=== PATIENT | female | born 1935 | race Caucasian/White ===

== ENCOUNTER 2017-07-03 12:41 | Inpatient (IN) | payer MEDICARE, OTHER ==
[2017-07-03] MEDS ORDERED: Magnesium 2 GM/NS 0.9% 50 ML 2 GM in Premix Bag 1 BAG IVPB ONE (14:15)
[2017-07-03 14:16] LABS: #Lymphocytes 0.3 thou/uL (1.20-3.40); #Monocytes 0.7 thou/uL (0.11-0.59); #Neutrophils 4.6 thou/uL (1.40-6.50); %Eosinophils 0.2 % (0.0-10.0); %Lymphocytes 5.2 % (21.0-51.0); %Monocytes 12.4 % (0.0-10.0); %Neutrophils 82.2 % (42.0-75.0); Hemoglobin 13.8 g/dL (12.0-16.0); Mean Corpuscular HGB CONC 33.2 g/dL (32.0-36.0); Mean Corpuscular Hemoglobin 32.4 pg (27.0-31.0); Mean Corpuscular Volume 97.7 fl (81.0-99.0); Mean Platelet Volume 6.5 fL (7.4-10.4); Platelet Count 291 thou/uL (130-400); RBC Distribution Width 11.2 % (11.5-14.5); Red Blood Cell (RBC) Count 4.26 mill/uL (4.20-5.40); White Blood Cell (WBC) Count 5.6 thou/uL (4.8-10.8)
--- NOTE | 2017-07-03 14:16 | RAD ---
PORTABLE CHEST ONE VIEW: 07/03/2017 1:38 p.m. HISTORY: Cough. FINDINGS: The heart size is enlarged. The aorta is tortuous. The lungs are well expanded without focal areas of consolidation, pneumothorax, francis pulmonary edema, or pleural effusions. POS: [facility]
[2017-07-03] MEDS ORDERED: Ondansetron HCl/PF 4 MG/2 ML Vial ONE (14:20)
[2017-07-03] MEDS ORDERED: methylPREDNISolone Sod Succ/PF 125 MG/2 ML VIAL ONE (14:21)
[2017-07-03] MEDS ORDERED: Water For Inject, Bacteriostat 30 ML ONE (14:21)
[2017-07-03 14:37] LABS: ALT (SGPT) 27 U/L (8-55); AST (SGOT) 38 U/L (5-34); Albumin 4.8 g/dL (3.4-4.8); Alkaline Phosphatase 73 U/L (40-150); Anion Gap 16 mmol/L (10-20); BUN (Urea Nitrogen) 11 mg/dL (9.8-20.1); Bilirubin, Total 0.4 mg/dL (0.2-1.2); CK (CPK) 269 U/L (29-168); Calc. Creatinine Clearance 0 mL/min (70-130); Calcium 10.4 mg/dL (7.8-10.44); Carbon Dioxide 25 mmol/L (23-31); Chloride 96 mmol/L (98-107); Estimated GFR-MDRD 73; Glucose 134 mg/dL (83-110); Lipase 7 U/L (8-78); Potassium 3.4 mmol/L (3.5-5.1); Protein, Total 7.8 g/dL (6.0-8.3); Sodium 134 mmol/L (136-145)
[2017-07-03 14:42] LABS: Troponin I 0.019 ng/mL (< 0.028)
[2017-07-03 14:45] LABS: CKMB 7.8 ng/mL (0-6.6)
[2017-07-03] MEDS ORDERED: Oseltamivir 75 MG CAP PO ONE (15:00)
[2017-07-03 15:04] LABS: Bilirubin Negative (Negative); Blood, Urine Moderate (Negative); Clarity CLOUDY (Clear); Glucose, Urine (Dipstick) Negative (Negative); Leukocyte Negative (Negative); Nitrite Negative (Negative); Protein, Urine (Dipstick) 100 mg/dL (Neg-Trace); Specific Gravity, Urine 1.018 (1.002-1.036); Urobilinogen 0.2 mg/dL (0.2-1.0)
[2017-07-03 15:06] LABS: Bacteria/HPF None Seen HPF (None Seen); Hyaline Casts/LPF 0-3 HYALINE CAST LPF (0-3 Hyaline); Pathc Cast-AUWi Flag 0.13 (0-2.49); Squamous Epithelial 0-3 HPF (0-3); WBC/HPF 0-3 HPF (0-3)
[2017-07-03 15:16] LABS: Crystals/HPF 1+ AMORPH PHOS HPF (Negative)
[2017-07-03] MEDS ORDERED: Albuterol Sulfate 2.5 mg/3 ml Neb NEB PRN (16:01)
[2017-07-03] MEDS ORDERED: Loperamide HCl 2 MG CAP PO PRN (16:25)
[2017-07-03] MEDS ORDERED: Acetaminophen 325 MG TAB PO PRN (16:25)
[2017-07-03] MEDS ORDERED: Pepto Bismol Chew TAB PO PRN (16:25)
[2017-07-03] MEDS ORDERED: Ondansetron ODT 4 MG TAB PO PRN (16:25)
[2017-07-03] MEDS ORDERED: Ondansetron HCl/PF 4 MG/2 ML Vial IVP PRN (16:25)
[2017-07-03] MEDS ORDERED: Sodium Chloride 0.9% 1,000 ML IV SCH (16:25)
[2017-07-03] MEDS ORDERED: HYDROcodone/Acetaminophen 5/325 mg Tablet PO PRN (16:25)
[2017-07-03 16:33] VITALS: BMI 18.2
[2017-07-03 18:14] LABS: Lactic Acid 1.5 mmol/L (0.5-2.2)
[2017-07-03] MEDS: Oseltamivir 75 MG CAP PO SCH (20:11)
[2017-07-03] MEDS: Famotidine/PF 20 mg/2ml Vial SLOW IVP SCH (20:11)
[2017-07-03] MEDS: Sodium Chloride 0.9% 1,000 ML IV SCH (20:11)
[2017-07-04] MEDS: Sodium Chloride 0.9% 1,000 ML IV SCH ×2 (04:52→08:30)
[2017-07-04 05:52] LABS: Band 14 % (5-11); Hemoglobin 11.7 g/dL (12.0-16.0); Lymphocytes 3 % (21-51); MDiff Complete? YES; Mean Corpuscular Volume 96.9 fl (81.0-99.0); Mean Platelet Volume 6.8 fL (7.4-10.4); Monocytes 23 % (0-10); Neutrophil 57 % (42-75); PLT Morphology Comment Appears Adequate; Platelet Count 235 thou/uL (130-400); RBC Distribution Width 11.1 % (11.5-14.5); Reactive Lymphocytes 3 % (0-10); Red Blood Cell (RBC) Count 3.55 mill/uL (4.20-5.40); White Blood Cell (WBC) Count 3.7 thou/uL (4.8-10.8)
[2017-07-04 06:14] LABS: Anion Gap 12 mmol/L (10-20); BUN (Urea Nitrogen) 15 mg/dL (9.8-20.1); Calc. Creatinine Clearance 45 mL/min (70-130); Calcium 8.7 mg/dL (7.8-10.44); Carbon Dioxide 25 mmol/L (23-31); Chloride 99 mmol/L (98-107); Estimated GFR-MDRD 76; Glucose 140 mg/dL (83-110); Potassium 3.2 mmol/L (3.5-5.1); Sodium 133 mmol/L (136-145)
[2017-07-04] MEDS: Enoxaparin Sodium 40 MG/0.4 ML SYRINGE SC SCH (08:30)
[2017-07-04] MEDS: Famotidine/PF 20 mg/2ml Vial SLOW IVP SCH ×2 (08:30→20:42)
[2017-07-04] MEDS: Oseltamivir 75 MG CAP PO SCH ×2 (10:11→20:42)
--- NOTE | 2017-07-04 15:55 | PDOC.PN ---
- Subjective Encounter Start Date: 07/04/17 Encounter Start Time: 15:30 Patient is seen today, alert and oriented. She is still hypoxic at this time, not safe to go home, Will need to Stay another night. - Objective Resuscitation Status: Resuscitation Status FULL:Full Resuscitation MAR Reviewed: Yes Vital Signs & Weight: Vital Signs (12 hours) Temp Pulse Resp BP BP Pulse Ox 07/04/17 14:08 105 H 20 89 L 07/04/17 12:00 97.8 F 99 19 143/85 H 99 07/04/17 11:08 76 16 97 07/04/17 08:00 97.9 F 76 16 110/51 L 98 07/04/17 06:53 82 16 97 07/04/17 04:00 98.1 F 81 16 108/65 96 Weight Weight 103 lb I&O: 07/03/17 07/04/17 07/05/17 06:59 06:59 06:59 Intake Total 2260 480 Balance 2260 480 Result Diagrams: 07/04/17 04:06 07/04/17 04:06 Radiology Reviewed by me: Yes Phys Exam - Physical Examination HEENT: PERRLA, moist MMs Neck: no nodes, no JVD Respiratory: no wheezing, no rales Cardiovascular: RRR, no significant murmur Gastrointestinal: soft, non-tender Musculoskeletal: no edema, pulses present Dx/Plan (1) Acute respiratory failure with hypoxia Code(s): J96.01 - ACUTE RESPIRATORY FAILURE WITH HYPOXIA Status: Acute (2) Influenza A Code(s): J10.1 - FLU DUE TO OTH IDENT INFLUENZA VIRUS W OTH RESP MANIFEST Status: Acute (3) Moderate dehydration Code(s): E86.0 - DEHYDRATION Status: Acute - Plan cont current plan of care, plan discussed w/ family, continue antibiotics, PT/OT , social worker aide, respiratory therapy, incentive spirometry, DVT proph w/ lovenox * . Plan: Paitent remains hypoxic, Will needd to continuued on Incentive Spirometry and nebulizer treatment. Will continue the course of Tamiflu for 5 days along with Levofloxacin, Will repeat chest xray to look for developeemnt of pneumponia. Dehydration is improved with IV fluids. Will encourge pt to drink more fluids , Will d/c IV fluids. Disposition discharge Home when pt is able to breath on Room Air. DVT prophylaxis: Lovenox. - Discharge Day Encounter end time: 16:00 Review of Systems - Review of Systems Constitutional: weakness, malaise Eyes: negative: Pain, Vision Change, Conjunctivae Inflammation, Eyelid Inflammation, Redness, Other ENT: negative: Ear Pain, Ear Discharge, Nose Pain, Nose Discharge, Nose Congestion, Mouth Pain, Mouth Swelling, Throat Pain, Throat Swelling, Other Respiratory: Cough, SOB with Excertion. negative: Dry, Shortness of Breath, Hemoptysis, Pleuritic Pain, Sputum, Wheezing Cardiovascular: negative: chest pain, palpitations, orthopnea, paroxysmal nocturnal dyspnea, edema, light headedness, other Gastrointestinal: negative: Nausea, Vomiting, Abdominal Pain, Diarrhea, Constipation, Melena, Hematochezia, Other Genitourinary: negative: Dysuria, Frequency, Incontinence, Hematuria, Retention , Other Musculoskeletal: negative: Neck Pain, Shoulder Pain, Arm Pain, Back Pain, Hand Pain, Leg Pain, Foot Pain, Other Skin: negative: Rash, Lesions, Farhad, Bruising, Other Neurological: Weakness. negative: Numbness, Incoordination, Change in Speech, Confusion, Seizures, Other - Medications/Allergies Allergies/Adverse Reactions: Allergies Allergy/AdvReac Type Severity Reaction Status Date / Time codeine Allergy Mild Verified 07/03/17 16:35 Medications: Current Medications Acetaminophen (Tylenol) 650 mg PO Q4H PRN PRN Reason: Headache/Fever or Pain Hydrocodone Bitart/Acetaminophen ([place] 5/325) 1 tab PO Q4H PRN PRN Reason: Moderate Pain (4-6) Albuterol Sulfate (Ventolin) 2.5 mg NEB Q2HR PRN PRN Reason: Wheezing Albuterol/Ipratropium (Duoneb) 3 ml NEB [id number] [facility] Last Admin: 07/04/17 14:08 Dose: 3 ml Bismuth Subsalicylate (Pepto Bismol) 2 tab PO Q1H PRN PRN Reason: Diarrhea/Loose Stools Enoxaparin Sodium (Lovenox) 40 mg SC 0900 [facility] Last Admin: 07/04/17 08:30 Dose: 40 mg Famotidine (Pepcid) 20 mg SLOW IVP Q12HR [facility] Last Admin: 07/04/17 08:30 Dose: 20 mg Sodium Chloride (Normal Saline 0.9%) 1,000 mls @ 100 mls/hr IV .Q10H [facility] Last Admin: 07/04/17 08:30 Dose: 1,000 mls Loperamide HCl (Imodium) 2 mg PO PRN PRN PRN Reason: Diarrhea/Loose Stools Ondansetron HCl (Zofran Odt) 4 mg PO Q6H PRN PRN Reason: Nausea/Vomiting Ondansetron HCl (Zofran) 4 mg IVP Q6H PRN PRN Reason: Nausea/Vomiting Oseltamivir Phosphate (Tamiflu) 75 mg PO BID [facility] Stop: 07/08/17 09:01 Last Admin: 07/04/17 10:11 Dose: 75 mg Sodium Chloride (Flush - Normal Saline) 10 ml IVF PRN PRN PRN Reason: Saline Flush
--- NOTE | 2017-07-04 16:54 | RAD ---
AP VIEW CHEST: INDICATIONS: Cough. IMPRESSION: Stable chronic lung changes and mild cardiomegaly. No definite acute cardiopulmonary abnormality whe n compared to the prior study, dated 07/03/2017. POS: [facility]
[2017-07-05] MEDS: Sodium Chloride 0.9% 1,000 ML IV SCH ×3 (01:10→19:40)
[2017-07-05 05:11] LABS: Anion Gap 12 mmol/L (10-20); BUN (Urea Nitrogen) 9 mg/dL (9.8-20.1); Calc. Creatinine Clearance 44 mL/min (70-130); Calcium 8.8 mg/dL (7.8-10.44); Carbon Dioxide 29 mmol/L (23-31); Chloride 103 mmol/L (98-107); Estimated GFR-MDRD 74; Glucose 80 mg/dL (83-110); Potassium 3.2 mmol/L (3.5-5.1); Sodium 141 mmol/L (136-145)
[2017-07-05 05:35] LABS: Hemoglobin 13.4 g/dL (12.0-16.0); Lymphocytes 19 % (21-51); MDiff Complete? YES; Mean Corpuscular HGB CONC 33.3 g/dL (32.0-36.0); Mean Corpuscular Hemoglobin 32.5 pg (27.0-31.0); Mean Corpuscular Volume 97.6 fl (81.0-99.0); Mean Platelet Volume 6.9 fL (7.4-10.4); Monocytes 15 % (0-10); Neutrophil 66 % (42-75); PLT Morphology Comment Appears Adequate; Platelet Count 259 thou/uL (130-400); RBC Distribution Width 11.3 % (11.5-14.5); Red Blood Cell (RBC) Count 4.11 mill/uL (4.20-5.40); White Blood Cell (WBC) Count 5.4 thou/uL (4.8-10.8)
[2017-07-05] MEDS: Famotidine/PF 20 mg/2ml Vial SLOW IVP SCH ×2 (08:39→19:37)
[2017-07-05] MEDS: Oseltamivir 75 MG CAP PO SCH ×2 (08:39→19:35)
[2017-07-05] MEDS: Enoxaparin Sodium 40 MG/0.4 ML SYRINGE SC SCH (08:39)
--- NOTE | 2017-07-05 09:34 | HP ---
CHIEF COMPLAINT: Weakness. HISTORY OF PRESENT ILLNESS: This is an 82-year-old white female who is living with her . She was noted to have worsening shortness of breath and cough for the past few days and this is associat ed with severe dizziness and lethargy and she was brought to the ER for further evaluation. Patient has a known history of hypertension and she is not on any home medications at this time. The patient was noted to have low saturations in the 85% at room air and she was started on nasal cannula and ne bulizer treatments. She had a low grade fever of 100.1 and had severe body pains and nausea. The pa vj was tested positive for influenza A infection and was started on Tamiflu. She was needing oxyg en. She was being admitted for further evaluation. She was seen today in the ER. She was alert and oriented. According to the , the patient felt much better after the nebulizer treatment and oxygen and one bag of fluids. Patient is very dehydrated at this time and she is very weak with high risk for falls. The patient is being admitted for further monitoring. PAST MEDICAL HISTORY: History of hypertension. PAST SURGICAL HISTORY: History of hysterectomy in the past. SOCIAL HISTORY: The patient is a nonsmoker. No history of alcohol, no history of illicit drug use. FAMILY HISTORY: No significant family history of coronary artery disease. REVIEW OF SYSTEMS: All 12 systems are reviewed with the patient thoroughly and found to be negative at this time. The following complete review of systems was negative, unless otherwise mentioned in the HPI or below : Constitutional: Weight loss or gain, sense of well-being, ability to conduct usual activities, exerc ise tolerance. Skin/Breast: Rash, itching, changes in hair growth or loss, nail changes, breast lumps, tenderness, swelling, nipple discharge. Eyes: Vision, double vision, tearing, blind spots, pain. ENT/Mouth: Headaches (location, time of onset, duration, precipitating factors), vertigo, lightheade dness, injury. Vision, double vision, tearing, blind spots, pain, nose bleeding, colds, obstruction, discharge, dental difficulties, gingival bleeding, dentures, neck stiffness, pain, tenderness, masses in thyroid or other areas Cardiovascular: Precordial pain, substernal distress, palpitations, syncope, dyspnea on exertion, or thopnea, nocturnal paroxysmal dyspnea, edema, cyanosis, hypertension, heart murmurs, varicosities, ph lebitis, claudication. Respiratory: Pain, shortness of breath, wheezing, stridor, cough, hemoptysis, fever or night sweats Gastrointestinal: Poor appetite, dysphagia, indigestion, abdominal pain, heartburn, eructation, naus ea, vomiting, hematemesis, jaundice, constipation, or diarrhea, abnormal stools (indio-colored, tarry, bloody, greasy, foul smelling), flatulence, hemorrhoids, recent changes in bowel habits. Genitourinary: Urgency, frequency, dysuria, nocturia, hematuria, polyuria, oliguria, unusual (or lola nge in) color of urine, stones, hesitancy, change in size of stream, dribbling, acute retention or in continence, libido, potency. Musculoskeletal: Pain, swelling, redness or heat of muscles or joints, limitation, of motion, muscul ar weakness, atrophy, cramps. Neurologic/Psychiatric: Convulsions, paralyses, tremor, incoordination, paraesthesias, difficulties with memory of speech, sensory or motor disturbances, or muscular coordination (ataxia, tremor), emot ional problems, anxiety, depression, previous psychiatric care, unusual perceptions, hallucinations. Allergy/Immunologic: Skin rash, anemia, bleeding tendency, polydipsia, polyuria, intolerance to heat or cold. HOME MEDICATIONS: 1. Albuterol inhaler. 2. Citalopram. 3. Omeprazole 20 mg daily. 4. Multivitamin. ALLERGIES: CODEINE. PHYSICAL EXAMINATION: VITAL SIGNS: Blood pressure on the day of admission 135/72, heart rate is 85, respiratory 18, satura tion 93% on 3 liters. GENERAL: The patient is moderately built and moderately nourished. She does not appear to be in acu te distress, seen lying in the bed supine. HEENT: Atraumatic, normocephalic. PERRLA. Extraocular movements are intact. Oral mucosa pink and m oist. CARDIOVASCULAR SYSTEM: S1, S2 normal. No murmurs, rubs or gallops. LUNGS: Bilateral air entry was equal. No wheezing, no crackles. ABDOMEN: Soft, nontender, no guarding, no rebound tenderness. Bowel sounds normal. MUSCULOSKELETAL: No calf tenderness. No pedal edema. No joint redness, no joint swelling. SKIN: No cyanosis, no erythema, no rash, no pallor. CENTRAL NERVOUS SYSTEM: Cranial nerve examination II-XII intact. No focal deficits were noted. PSYCHIATRIC: No signs of suicidal ideation. No signs of beatriz. LYMPHATICS: No evidence of any lymph node enlargement was noted. Inguinal and cervical sites were e xamined. NECK: No evidence of JVD, no thyromegaly was noted. LABORATORY DATA: On the day of admission, WBC 5.6, hemoglobin is 13.8, hematocrit is 41.6, and plate lets 291. Sodium 134, potassium 3.4, chloride is 96, BUN 11, creatinine 0.76. Lactic acid was 2.6. ASSESSMENT AND PLAN: 1. Acute hypoxic respiratory failure. 2. Acute influenza A infection. 3. Acute hyponatremia. 4. Acute hypokalemia. 5. Moderate to severe dehydration. 6. Intractable nausea and vomiting. PLAN: 1. Plan is to start the patient on nasal cannula oxygen and keep the saturations more than 92% and c ontinue with DuoNeb nebulizer treatments every 4 hours scheduled and albuterol nebulizer treatments e very 2 hours. 2. We will continue the patient on Tamiflu for 5 days at 75 mg twice a day and we will add levofloxa ck for any secondary bacterial infection which could accompany influenza A. 3. Patient has mild hyponatremia. Patient is being started on IV fluids at 100 mL an hour. We will closely monitor and rehydrate the patient. 4. Hypokalemia. The patient will be replaced with potassium protocol. 5. The patient has history of gastroesophageal reflux disease. We will continue with home dose of o meprazole. The patient has intractable nausea and vomiting, most likely this is from influenza A inf ection. We will continue patient on Zofran and continue to hydrate the patient. 6. Deep venous thrombosis prophylaxis, Lovenox. 7. We will continue with PT and OT evaluations for safe discharge home in 1 or 2 days. Patient woul d need to be in the hospital at least for 2 days because of the weakness and hypoxia. I spent 75 minutes on this patient.
[2017-07-05] MEDS ORDERED: Citalopram 20 MG TAB PO SCH (21:00)
[2017-07-06] MEDS: Sodium Chloride 0.9% 1,000 ML IV SCH (06:29)
[2017-07-06 07:43] VITALS: BP 164/89; TEMP 98.7
[2017-07-06] MEDS: Enoxaparin Sodium 40 MG/0.4 ML SYRINGE SC SCH (08:15)
[2017-07-06] MEDS: Famotidine/PF 20 mg/2ml Vial SLOW IVP SCH (08:15)
[2017-07-06] MEDS ORDERED: Multivit, Therapeutic 1 TAB PO SCH (09:00)
[2017-07-06] MEDS: Oseltamivir 75 MG CAP PO SCH (10:17)
--- NOTE | 2017-07-06 11:46 | PDOC.PN ---
- Subjective Encounter Start Date: 07/05/17 Encounter Start Time: 15:15 Patient is seen today, she is able to maintian saturation while on bed, but when walking she is desaturating to 80, She will need home oxygen setup. - Objective Resuscitation Status: Resuscitation Status FULL:Full Resuscitation MAR Reviewed: Yes Vital Signs & Weight: Vital Signs (12 hours) Temp Pulse Resp BP Pulse Ox 07/06/17 11:31 97 07/06/17 07:43 98.7 F 68 16 164/89 H 94 L 07/06/17 06:36 82 92 L 07/06/17 04:00 94 Weight Admit Weight 103 lb Weight 103 lb I&O: 07/05/17 07/06/17 07/07/17 06:59 06:59 06:59 Intake Total 4580 2380 180 Balance 4580 2380 180 Result Diagrams: 07/05/17 04:14 07/05/17 04:14 Additional Labs: Accuchecks 07/05/17 11:01 POC Glucose 81 Radiology Reviewed by me: Yes Phys Exam - Physical Examination HEENT: PERRLA, moist MMs Neck: no nodes, no JVD Respiratory: no rales, wheezing present Cardiovascular: RRR, no significant murmur Gastrointestinal: non-tender Musculoskeletal: no edema, pulses present Neurological: non-focal, normal sensation Dx/Plan (1) Acute respiratory failure with hypoxia Code(s): J96.01 - ACUTE RESPIRATORY FAILURE WITH HYPOXIA Status: Acute (2) Influenza A Code(s): J10.1 - FLU DUE TO OTH IDENT INFLUENZA VIRUS W OTH RESP MANIFEST Status: Acute (3) Moderate dehydration Code(s): E86.0 - DEHYDRATION Status: Acute - Plan plan discussed w/ family, PT/OT, vp digital marketing social media and crm, respiratory therapy, incentive spirometry, DVT proph w/lovenox * . Plan: Paitent remains hypoxic, Will needd to continuued on Incentive Spirometry and nebulizer treatment. Will plan for home oxygen tomorow. Will continue the course of Tamiflu for 5 days along with Levofloxacin, Will repeat chest xray to look for developeemnt of pneumponia. Dehydration is improved with IV fluids. Will encourge pt to drink more fluids , Will d/c IV fluids. Disposition discharge Home when pt is able to breath on Room Air. DVT prophylaxis: Lovenox. - Discharge Day Encounter end time: 15:45 Review of Systems - Review of Systems Constitutional: negative: fever, chills, sweats, weakness, malaise, other Eyes: negative: Pain, Vision Change, Conjunctivae Inflammation, Eyelid Inflammation, Redness, Other ENT: negative: Ear Pain, Ear Discharge, Nose Pain, Nose Discharge, Nose Congestion, Mouth Pain, Mouth Swelling, Throat Pain, Throat Swelling, Other Respiratory: SOB with Excertion. negative: Cough, Dry, Shortness of Breath, Hemoptysis, Pleuritic Pain, Sputum, Wheezing Cardiovascular: negative: chest pain, palpitations, orthopnea, paroxysmal nocturnal dyspnea, edema, light headedness, other Genitourinary: negative: Dysuria, Frequency, Incontinence, Hematuria, Retention , Other Musculoskeletal: negative: Neck Pain, Shoulder Pain, Arm Pain, Back Pain, Hand Pain, Leg Pain, Foot Pain, Other Skin: negative: Rash, Lesions, Farhad, Bruising, Other Neurological: negative: Weakness, Numbness, Incoordination, Change in Speech, Confusion, Seizures, Other - Medications/Allergies Allergies/Adverse Reactions: Allergies Allergy/AdvReac Type Severity Reaction Status Date / Time codeine Allergy Mild Verified 07/03/17 16:35 Medications: Current Medications Acetaminophen (Tylenol) 650 mg PO Q4H PRN PRN Reason: Headache/Fever or Pain Hydrocodone Bitart/Acetaminophen ([place] 5/325) 1 tab PO Q4H PRN PRN Reason: Moderate Pain (4-6) Albuterol Sulfate (Ventolin) 2.5 mg NEB Q2HR PRN PRN Reason: Wheezing Albuterol/Ipratropium (Duoneb) 3 ml NEB [id number] [facility] Last Admin: 07/06/17 09:31 Dose: Not Given Bismuth Subsalicylate (Pepto Bismol) 2 tab PO Q1H PRN PRN Reason: Diarrhea/Loose Stools Citalopram Hydrobromide (Celexa) 20 mg PO HS [facility] Last Admin: 07/05/17 19:35 Dose: 20 mg Enoxaparin Sodium (Lovenox) 40 mg SC 0900 [facility] Last Admin: 07/06/17 08:15 Dose: 40 mg Famotidine (Pepcid) 20 mg SLOW IVP Q12HR [facility] Last Admin: 07/06/17 08:15 Dose: 20 mg Sodium Chloride (Normal Saline 0.9%) 1,000 mls @ 100 mls/hr IV .Q10H [facility] Last Admin: 07/06/17 06:29 Dose: 1,000 mls Loperamide HCl (Imodium) 2 mg PO PRN PRN PRN Reason: Diarrhea/Loose Stools Multivitamins (Theragran) 1 tab PO DAILY [facility] Last Admin: 07/06/17 08:15 Dose: 1 tab Ondansetron HCl (Zofran Odt) 4 mg PO Q6H PRN PRN Reason: Nausea/Vomiting Ondansetron HCl (Zofran) 4 mg IVP Q6H PRN PRN Reason: Nausea/Vomiting Oseltamivir Phosphate (Tamiflu) 75 mg PO BID [facility] Stop: 07/08/17 09:01 Last Admin: 07/06/17 10:17 Dose: 75 mg Pantoprazole Sodium (Protonix) 40 mg PO DAILY [facility] Last Admin: 07/06/17 08:16 Dose: 40 mg Sodium Chloride (Flush - Normal Saline) 10 ml IVF PRN PRN PRN Reason: Saline Flush
--- NOTE | 2017-07-06 14:49 | DIS ---
DATE OF ADMISSION: 07/03/2017 DATE OF DISCHARGE: 07/06/2017 ADMITTING DIAGNOSIS: Acute hypoxic respiratory failure. DISCHARGE DIAGNOSIS: Acute hypoxic respiratory failure. SECONDARY DIAGNOSES: 1. Acute influenza A infection. 2. Moderate dehydration. 3. Intractable nausea. HISTORY OF PRESENT ILLNESS AND HOSPITAL COURSE: In brief, this is an 82-year-old white female who de veloped influenza A infection. She was suffering with severe nausea, vomiting, and severe lethargy a nd was brought to the ER and was noted to have low saturations in 80s. The patient was started on na dom cannula oxygen and started on Tamiflu 75 mg p.o. b.i.d. along with levofloxacin. The patient consuelo wed good improvement. During this hospitalization, her hydration improved following IV fluids. Marleny ent was able to work with physical therapy, able to walk around, but she had a problem with maintaini ng her saturations. She was dropping saturations to 80% as she starts to walk, but she had a very st ooped down posture and she was not able to make good breathing movements. I have explained to the juice zabala about standing erect when walking and advised to correct her posture. The patient was able to breathe better after this and she was able to saturate more than 90% on walking. Patient was [facility] in stable condition. PHYSICAL EXAMINATION: VITAL SIGNS: On day of discharge, blood pressures are 164/89, heart rate is 68, respiratory rate 16, saturation 94%. GENERAL: The patient is moderately built and moderately nourished. She does not appear to be in acu te distress at this time. CARDIOVASCULAR: S1, S2 normal. No murmurs, rubs or gallops. LUNGS: Bilateral air entry was equal. No wheezing, no crackles. ABDOMEN: Soft, nontender, no guarding, no rebound tenderness. Bowel sounds normal. MUSCULOSKELETAL: No calf tenderness. No pedal edema. No joint tenderness, no joint swelling. SKIN: No cyanosis, no erythema, no rash, no pallor. NEUROLOGIC: Cranial nerve examination II-XII intact. No focal deficits were noted. DISCHARGE MEDICATIONS: 1. Albuterol inhaler. 2. Celexa 20 mg p.o. at bedtime. 3. Esomeprazole 20 mg p.o. daily. 4. Multivitamin 1 tablet daily. 5. Tamiflu tablet takes 75 mg twice a day, continue for 2 more days. DISCHARGE INSTRUCTIONS: Continue activity as tolerated. Advised to follow up with the primary care physician in 1-2 weeks. Advised to continue on general diet. Advised to return to the ER if the pat ient has worsening shortness of breath. I spent 35 minutes of this patient on the day of discharge.
--- NOTE | 2017-07-07 08:53 | HP ---
DATE OF ADMISSION: 07/03/2017 CHIEF COMPLAINT: Nausea and vomiting. HISTORY OF PRESENT ILLNESS: This is an 89-year-old elderly white female living with her . Forrest lechuga is noted to have chronic cough for the past one year and seems to be because of allergies and she g oes to donor specialist who gives her some allergy shots and also some inhalers. The patient takes at home. The patient was experiencing persistent nausea and vomiting for the past 2-3 days. She de nies having any exposure to any sick people around, but she does admit [facility]. So she developed severe cough and worsening vomiting and unable to keep anything down. She came to the ER and was noted to have low saturations of 85% on ro om air. The patient was started on nebulizer treatments and had a flu testing done that was positive for flu. The patient denies having any fever. She denies taking any immunization this year and she says she never took immunization because it never worked for her. The patient is seen along with he r . She is able to talk in full sentences at this time and she is requesting to go home [place]. She has a problem with her insurance where her insurance changes tomorrow to next company. The patient denies having any chest pain at this time. Denies having any abdominal pain. Denies having any diarrhea. Patient denies taking any recent antibiotics or any new medications recently. The patient did not have any major medical problems. She does have high blood pressures. PAST MEDICAL HISTORY: 1. Hypertension. 2. Multiple allergies and history of chronic cough. PAST SURGICAL HISTORY: History of hysterectomy many years ago, but otherwise normal. No other surge susan. SOCIAL HISTORY: The patient lives with her . No history of smoking. No history of alcohol, no history of illicit drug use. FAMILY HISTORY: No significant family history of coronary artery disease and it is irrelevant at thi s time for the elderly age of the patient, but this has been thoroughly evaluated. REVIEW OF SYSTEMS: All 12 systems are reviewed with the patient thoroughly and found to be negative. The following complete review of systems was negative, unless otherwise mentioned in the HPI or below : Constitutional: Weight loss or gain, sense of well-being, ability to conduct usual activities, exerc ise tolerance. Skin/Breast: Rash, itching, changes in hair growth or loss, nail changes, breast lumps, tenderness, swelling, nipple discharge. Eyes: Vision, double vision, tearing, blind spots, pain. ENT/Mouth: Headaches (location, time of onset, duration, precipitating factors), vertigo, lightheade dness, injury. Vision, double vision, tearing, blind spots, pain, nose bleeding, colds, obstruction, discharge, dental difficulties, gingival bleeding, dentures, neck stiffness, pain, tenderness, masses in thyroid or other areas Cardiovascular: Precordial pain, substernal distress, palpitations, syncope, dyspnea on exertion, or thopnea, nocturnal paroxysmal dyspnea, edema, cyanosis, hypertension, heart murmurs, varicosities, ph lebitis, claudication. Respiratory: Pain, shortness of breath, wheezing, stridor, cough, hemoptysis, fever or night sweats Gastrointestinal: Poor appetite, dysphagia, indigestion, abdominal pain, heartburn, eructation, naus ea, vomiting, hematemesis, jaundice, constipation, or diarrhea, abnormal stools (indio-colored, tarry, bloody, greasy, foul smelling), flatulence, hemorrhoids, recent changes in bowel habits. Genitourinary: Urgency, frequency, dysuria, nocturia, hematuria, polyuria, oliguria, unusual (or lola nge in) color of urine, stones, hesitancy, change in size of stream, dribbling, acute retention or in continence, libido, potency. Musculoskeletal: Pain, swelling, redness or heat of muscles or joints, limitation, of motion, muscul ar weakness, atrophy, cramps. Neurologic/Psychiatric: Convulsions, paralyses, tremor, incoordination, paraesthesias, difficulties with memory of speech, sensory or motor disturbances, or muscular coordination (ataxia, tremor), emot ional problems, anxiety, depression, previous psychiatric care, unusual perceptions, hallucinations. Allergy/Immunologic: Skin rash, anemia, bleeding tendency, polydipsia, polyuria, intolerance to heat or cold. PHYSICAL EXAMINATION: VITAL SIGNS: Blood pressure is 136/88, heart rate is 80, respiratory is 18, saturation 95% on 2 lite rs. GENERAL: The patient is moderately built and moderately nourished. She does not appear to be in acu te distress. HEENT: Atraumatic, normocephalic. PERRLA. Extraocular movements were intact. Oral mucosa is pink a nd moist. CARDIOVASCULAR: S1, S2 normal. No murmurs, rubs or gallops. LUNGS: Bilateral air entry was equal. No wheezing, no crackles. ABDOMEN: Soft, nontender. No guarding or rebound tenderness. Bowel sounds normal. MUSCULOSKELETAL: No calf tenderness. No pedal edema. No joint tenderness, no joint swelling. SKIN: No cyanosis, no erythema, no rash, no pallor. CENTRAL NERVOUS SYSTEM: Cranial nerve examination II-XII intact. No focal deficits were noted. LYMPHATICS: No evidence of any lymph nodes noted. Inguinal and cervical lymph nodes were checked. PSYCHIATRIC: No signs of suicidal ideation. No signs of beatriz. LABORATORY DATA: 1. WBC 5.6, hemoglobin is 13.8, hematocrit is 41.6, and platelets are 291. 2. Sodium is 134, potassium 3.4, chloride is 96, blood glucose 134, AST 38. CK is 269, CK-MB 7.8, t roponin 0.019. 3. UA was done showing positive for ketones, but no signs of any urinary tract infection. ASSESSMENT AND PLAN: 1. Acute influenza B infection. 2. Acute hypoxic respiratory failure. 3. Intractable nausea and vomiting. 4. Severe dehydration. 5. Hypertension. PLAN: 1. Plan is to start the patient on IV fluids at this time with 100 mL an hour as patient has severel y dehydrated and closely monitor the ins and outs. 2. The patient has evidence of influenza B infection. We will start the patient on Tamiflu 75 mg tw ice a day to continue for 5 days. 3. We will add empiric antibiotic with levofloxacin 500 mg IV daily to avoid any secondary bacterial infection. 4. The patient has evidence of hypoxia which is pretty evident with drop in saturations to 85%. At this time, we will start the patient on nasal cannula and we will do DuoNebs every 4 hours scheduled and albuterol nebulizer treatments every 2 hours as needed and plan to keep the saturations more than 92%. The patient might end up needing going home with nebulizers or inhalers at this time. We will closely monitor. 5. I would expect patient to be in the hospital at least for 2 midnights as patient is pretty hypoxi c with influenza B infection. 6. Hypertension is well controlled. The patient is not on home medications. She stopped taking her medications. We will closely monitor blood pressures at this time. 7. Deep venous thrombosis prophylaxis, Lovenox 40 mg subcu daily. I spent 70 minutes on this patient.
--- NOTE | 2017-07-10 15:43 | EKG ---
Test Reason : Blood Pressure : / mmHG Vent. Rate : 094 BPM Atrial Rate : 105 BPM P-R Int : 000 ms QRS Dur : 066 ms QT Int : 346 ms P-R-T Axes : 000 061 070 degrees QTc Int : 432 ms Normal sinus rhythm with occasional Premature atrial complexes Baseline Artifact Present Otherwise normal ECG Confirmed by SCOTT VERGARA DO ([id number]), senior technical editor ROBERTO LORA ([id number]) on 07/10/2017 3:43:07 PM Referred By: Confirmed By:SCOTT VERGARA DO
--- NOTE | 2017-07-10 15:44 | EKG ---
Test Reason : Blood Pressure : / mmHG Vent. Rate : 093 BPM Atrial Rate : 093 BPM P-R Int : 138 ms QRS Dur : 078 ms QT Int : 372 ms P-R-T Axes : 086 065 073 degrees QTc Int : 462 ms Sinus rhythm Premature atrial complexes Nonspecific ST abnormality Abnormal ECG Confirmed by SCOTT VERGARA DO ([id number]), industrial editor ROBERTO LORA ([id number]) on 07/10/2017 3:44:00 PM Referred By: Confirmed By:SCOTT VERGARA DO
== END 2017-07-06 15:55 | disposition home or self-care (01) | DRG 194 ==
LOC: ERS 12:41 → T4-A 16:22
PROVIDERS: ADMIT Family Medicine; ATTEND Family Medicine
DX: J10.1 Influenza due to other identified influenza virus with other respiratory manifestations (principal); E87.1 Hypo-osmolality and hyponatremia; E86.0 Dehydration; J09.X2 Influenza due to identified novel influenza A virus with other respiratory manifestations; I10 Essential (primary) hypertension; E87.6 Hypokalemia; Z88.5 Allergy status to narcotic agent
CPT/HCPCS: 36415; 36416; 71010; 80048; 80053; 81003; 81015; 82553; 83605; 83690; 84484; 85025; 93005; 94150; 94640; 94760; 96365; 96375; G8978-GP-CI; G8979-GP-CI; G8980-GP-CI; J0696; J1650; J2405; J2930; J3475; J7620; S0028

== ENCOUNTER 2023-05-22 12:20 | Inpatient (IN) | payer MEDICARE ==
[2023-05-22 13:05] LABS: #Basophils 0.1 thou/uL (0.0-0.2); #Eosinphils 0.1 thou/uL (0.0-0.7); #Monocytes 0.5 thou/uL (0.11-0.59); #Neutrophils 5.2 thou/uL (1.40-6.50); %Basophils 0.8 % (0.0-1.0); %Eosinophils 0.8 % (0.0-10.0); %Lymphocytes 11.2 % (21.0-51.0); %Monocytes 7.7 % (0.0-10.0); %Neutrophils 79.2 % (42.0-75.0); Hematocrit 36.3 % (36.0-47.0); Hemoglobin 12.5 g/dL (12.0-16.0); Mean Corpuscular HGB CONC 34.4 g/dL (32.0-36.0); Mean Corpuscular Hemoglobin 32.1 pg (27.0-31.0); Mean Corpuscular Volume 93.1 fl (78.0-98.0); Mean Platelet Volume 9.3 fL (7.4-10.4); Platelet Count 293 10x3/uL (130-400); RBC Distribution Width 12.6 % (11.5-14.5); White Blood Cell (WBC) Count 6.6 10x3/uL (4.8-10.8)
[2023-05-22 13:26] LABS: ALT (SGPT) 21 U/L (8-55); AST (SGOT) 29 U/L (5-34); Albumin 4.2 g/dL (3.4-4.8); Alkaline Phosphatase 70 U/L (40-110); Anion Gap 16 mmol/L (10-20); BUN (Urea Nitrogen) 40 mg/dL (9.8-20.1); Bilirubin, Total 1.2 mg/dL (0.2-1.2); Calc. Creatinine Clearance 0 mL/min (70-130); Calcium 9.7 mg/dL (7.8-10.44); Carbon Dioxide 25 mmol/L (23-31); Chloride 95 mmol/L (98-107); Estimated GFR 49; Glucose 123 mg/dL (83-110); Potassium 3.9 mmol/L (3.5-5.1); Protein, Total 7.2 g/dL (5.8-8.1); Sodium 132 mmol/L (136-145)
[2023-05-22 13:29] LABS: Troponin I 0.024 ng/mL (< 0.028)
[2023-05-22 16:44] LABS: Bilirubin Negative (Negative); Blood, Urine Negative (Negative); CAUTI Indications for Culture Dysuria,urgency,freq; Clarity Clear (Clear); Glucose, Urine (Dipstick) Normal (Negative); Ketone, Urine Trace mg/dL (Negative); Leukocyte Negative Leu/uL (Negative); Nitrite Negative (Negative); Protein, Urine (Dipstick) Negative (Neg-Trace); RBC/HPF 0-3 HPF (0-3); Specific Gravity, Urine 1.018 (1.002-1.036); Squamous Epithelial 0-3 HPF (0-3); Urobilinogen Normal mg/dL (Less than 2); WBC/HPF 0-3 HPF (0-3)
[2023-05-22 16:51] LABS: Bacteria/HPF 1+ HPF (None Seen)
[2023-05-22 16:52] LABS: Urine Culture Reflex No No
[2023-05-22] MEDS ORDERED: Calcium Carbonate 500 MG ChewTAB PO PRN (19:32)
[2023-05-22] MEDS ORDERED: Ondansetron ODT 4 MG TAB PO PRN (19:32)
[2023-05-22] MEDS ORDERED: Senokot S 8.6-50 MG TAB PO PRN (19:32)
[2023-05-22] MEDS ORDERED: Acetaminophen 325 MG TAB PO PRN (19:32)
[2023-05-22] MEDS ORDERED: Ipratropium/Albuterol 3 ML NEB ONE (19:47)
[2023-05-23] MEDS: Ipratropium/Albuterol 3 ML NEB NEB PRN (03:38)
[2023-05-23] MEDS: Famotidine 20 MG TAB PO SCH ×2 (03:50→23:05)
[2023-05-23 06:41] LABS: #Basophils 0.1 thou/uL (0.0-0.2); #Eosinphils 0.2 thou/uL (0.0-0.7); #Monocytes 0.8 thou/uL (0.11-0.59); #Neutrophils 5.1 thou/uL (1.40-6.50); %Basophils 0.9 % (0.0-1.0); %Eosinophils 2.4 % (0.0-10.0); %Lymphocytes 12.6 % (21.0-51.0); %Monocytes 10.7 % (0.0-10.0); %Neutrophils 73.1 % (42.0-75.0); Hematocrit 31.9 % (36.0-47.0); Hemoglobin 11.2 g/dL (12.0-16.0); Mean Corpuscular HGB CONC 35.1 g/dL (32.0-36.0); Mean Corpuscular Hemoglobin 32.7 pg (27.0-31.0); Mean Corpuscular Volume 93.3 fl (78.0-98.0); Mean Platelet Volume 9.1 fL (7.4-10.4); Platelet Count 232 10x3/uL (130-400); RBC Distribution Width 12.6 % (11.5-14.5); Red Blood Cell (RBC) Count 3.42 mill/uL (4.20-5.40)
[2023-05-23 07:06] LABS: Anion Gap 14 mmol/L (10-20); BUN (Urea Nitrogen) 32 mg/dL (9.8-20.1); Calc. Creatinine Clearance 34 mL/min (70-130); Calcium 8.9 mg/dL (7.8-10.44); Carbon Dioxide 26 mmol/L (23-31); Chloride 99 mmol/L (98-107); Estimated GFR 68; Glucose 85 mg/dL (83-110); Potassium 3.5 mmol/L (3.5-5.1); Sodium 135 mmol/L (136-145)
[2023-05-23] MEDS ORDERED: FLU VACC QS2023(65UP)/MF59C/PF 60 MCG/0.5 ML SYRINGE IM ONE (18:15)
[2023-05-23] MEDS: Mometasone 200 MCG/Formoterol 5 MCG 120 PUFF INHALER INH SCH (19:41)
[2023-05-24 06:21] LABS: #Basophils 0.1 thou/uL (0.0-0.2); #Eosinphils 0.9 thou/uL (0.0-0.7); #Neutrophils 3.7 thou/uL (1.40-6.50); %Eosinophils 13.6 % (0.0-10.0); %Lymphocytes 17.2 % (21.0-51.0); %Monocytes 13.9 % (0.0-10.0); %Neutrophils 53.9 % (42.0-75.0); Hematocrit 34.4 % (36.0-47.0); Hemoglobin 11.9 g/dL (12.0-16.0); Mean Corpuscular HGB CONC 34.6 g/dL (32.0-36.0); Mean Corpuscular Hemoglobin 32.4 pg (27.0-31.0); Mean Corpuscular Volume 93.7 fl (78.0-98.0); Mean Platelet Volume 9.3 fL (7.4-10.4); Platelet Count 251 10x3/uL (130-400); RBC Distribution Width 12.4 % (11.5-14.5); Red Blood Cell (RBC) Count 3.67 mill/uL (4.20-5.40); White Blood Cell (WBC) Count 6.8 10x3/uL (4.8-10.8)
[2023-05-24 07:20] LABS: Anion Gap 13 mmol/L (10-20); BUN (Urea Nitrogen) 22 mg/dL (9.8-20.1); Calc. Creatinine Clearance 38 mL/min (70-130); Calcium 8.8 mg/dL (7.8-10.44); Carbon Dioxide 25 mmol/L (23-31); Chloride 102 mmol/L (98-107); Estimated GFR 79; Glucose 85 mg/dL (83-110); Potassium 3.3 mmol/L (3.5-5.1); Sodium 137 mmol/L (136-145)
[2023-05-24] MEDS: Mometasone 200 MCG/Formoterol 5 MCG 120 PUFF INHALER INH SCH ×2 (08:19→19:32)
[2023-05-24 14:40] VITALS: BMI 17.2
[2023-05-24] MEDS: Famotidine 20 MG TAB PO SCH (21:52)
[2023-05-25] MEDS: Mometasone 200 MCG/Formoterol 5 MCG 120 PUFF INHALER INH SCH ×2 (09:09→17:38)
[2023-05-25] MEDS: Famotidine 20 MG TAB PO SCH (21:30)
[2023-05-26] MEDS: Mometasone 200 MCG/Formoterol 5 MCG 120 PUFF INHALER INH SCH ×2 (07:56→17:44)
[2023-05-26] MEDS ORDERED: Potassium Chloride 20 MEQ TAB PO SCH (13:30)
[2023-05-27] MEDS ORDERED: hydrOXYzine 25 MG TAB PO SCH (04:00)
[2023-05-27] MEDS: Mometasone 200 MCG/Formoterol 5 MCG 120 PUFF INHALER INH SCH ×2 (07:56→20:27)
[2023-05-28] MEDS: Mometasone 200 MCG/Formoterol 5 MCG 120 PUFF INHALER INH SCH (07:44)
[2023-05-28] MEDS: DULoxetine 20 MG CAP PO SCH (08:52)
[2023-05-28] MEDS: Famotidine 20 MG TAB PO SCH ×3 (20:32→22:40)
[2023-05-29] MEDS: Ipratropium/Albuterol 3 ML NEB NEB PRN ×2 (05:05→20:00)
[2023-05-29] MEDS: Mometasone 200 MCG/Formoterol 5 MCG 120 PUFF INHALER INH SCH ×3 (05:23→19:59)
[2023-05-29] MEDS: DULoxetine 20 MG CAP PO SCH (10:54)
[2023-05-29] MEDS: Famotidine 20 MG TAB PO SCH (21:03)
[2023-05-30] MEDS: Mometasone 200 MCG/Formoterol 5 MCG 120 PUFF INHALER INH SCH ×2 (06:35→19:32)
[2023-05-30] MEDS: Ipratropium/Albuterol 3 ML NEB NEB PRN ×2 (06:57→19:31)
[2023-05-30] MEDS: DULoxetine 20 MG CAP PO SCH (08:59)
[2023-05-30] MEDS: Famotidine 20 MG TAB PO SCH (20:20)
[2023-05-31] MEDS: Ipratropium/Albuterol 3 ML NEB NEB PRN ×2 (07:00→18:15)
[2023-05-31] MEDS: Mometasone 200 MCG/Formoterol 5 MCG 120 PUFF INHALER INH SCH ×2 (07:14→18:18)
[2023-05-31] MEDS: DULoxetine 20 MG CAP PO SCH (09:14)
[2023-05-31] MEDS: Famotidine 20 MG TAB PO SCH (20:29)
[2023-06-01] MEDS: Ipratropium/Albuterol 3 ML NEB NEB PRN ×2 (03:21→07:30)
[2023-06-01] MEDS: Mometasone 200 MCG/Formoterol 5 MCG 120 PUFF INHALER INH SCH ×2 (07:30→19:30)
[2023-06-01] MEDS: DULoxetine 20 MG CAP PO SCH (09:25)
[2023-06-01] MEDS: Famotidine 20 MG TAB PO SCH (20:34)
[2023-06-02 04:15] VITALS: TEMP 97.7
[2023-06-02] MEDS: Mometasone 200 MCG/Formoterol 5 MCG 120 PUFF INHALER INH SCH (07:46)
[2023-06-02 09:37] VITALS: BP 113/74
[2023-06-02] MEDS: DULoxetine 20 MG CAP PO SCH (09:51)
== END 2023-06-02 14:59 | disposition home or self-care (01) | DRG 641 ==
LOC: ERS 12:20 → MSONC 20:02 → OBSVTOIN 05-23 16:23
PROVIDERS: ADMIT Student in an Organized Health Care Education/Training Program; ATTEND Internal Medicine
DX: E44.0 Moderate protein-calorie malnutrition (principal); Z68.1 Body mass index [BMI] 19.9 or less, adult; E86.0 Dehydration; F32.A Depression, unspecified; Z88.5 Allergy status to narcotic agent; Z79.899 Other long term (current) drug therapy; J44.9 Chronic obstructive pulmonary disease, unspecified; Z90.710 Acquired absence of both cervix and uterus; R79.89 Other specified abnormal findings of blood chemistry
CPT/HCPCS: 36415; 71045; 80048; 80053; 81001; 82550; 83605; 83880; 84484; 85025; 93005; 93306; 94640; 94664; 96360; G0378; J7620; Q0162

== ENCOUNTER 2023-07-30 08:33 | Emergency (ER) | payer MEDICARE ==
[2023-07-30 08:56] LABS: Analyzer IN Cardio ER; Base Excess 1.5 mEq/L (-2.0 to +3.0); Calcium, Ionized (venous) 1.12 mmol/L (1.16-1.32); Chloride (VBG) 103 mmol/L (98-106); Hematocrit-VBG 42 % (36.0-47.0); Hemoglobin (Hb) 14.2 g/dL (11.7-16.1); Potassium (VBG) 4.08 mmol/L (3.70-5.30); Sodium 139 mmol/L (133-146); pH (venous) 7.423 (7.32-7.43)
[2023-07-30 09:07] LABS: #Basophils 0.1 thou/uL (0.0-0.2); #Eosinphils 0.5 thou/uL (0.0-0.7); #Monocytes 0.6 thou/uL (0.11-0.59); #Neutrophils 3.3 thou/uL (1.40-6.50); %Basophils 1.2 % (0.0-1.0); %Lymphocytes 23.4 % (21.0-51.0); %Monocytes 10.1 % (0.0-10.0); Hematocrit 38.1 % (36.0-47.0); Hemoglobin 13.1 g/dL (12.0-16.0); Mean Corpuscular HGB CONC 34.4 g/dL (32.0-36.0); Mean Corpuscular Hemoglobin 32.2 pg (27.0-31.0); Mean Corpuscular Volume 93.6 fl (78.0-98.0); Mean Platelet Volume 9.3 fL (7.4-10.4); Platelet Count 266 10x3/uL (130-400); RBC Distribution Width 12.9 % (11.5-14.5); Red Blood Cell (RBC) Count 4.07 mill/uL (4.20-5.40); White Blood Cell (WBC) Count 5.9 10x3/uL (4.8-10.8)
[2023-07-30 09:32] LABS: ALT (SGPT) 24 U/L (8-55); AST (SGOT) 33 U/L (5-34); Alkaline Phosphatase 81 U/L (40-110); Anion Gap 13 mmol/L (10-20); BUN (Urea Nitrogen) 19 mg/dL (9.8-20.1); Bilirubin, Total 0.8 mg/dL (0.2-1.2); CK (CPK) 233 U/L (29-168); Calc. Creatinine Clearance 0 mL/min (70-130); Calcium 9.5 mg/dL (7.8-10.44); Carbon Dioxide 26 mmol/L (23-31); Chloride 104 mmol/L (98-107); Estimated GFR 73; Globulin 2.9 g/dL (2.4-3.5); Glucose 107 mg/dL (83-110); Potassium 4.1 mmol/L (3.5-5.1); Protein, Total 6.9 g/dL (5.8-8.1); Sodium 139 mmol/L (136-145)
[2023-07-30] MEDS ORDERED: Ipratropium/Albuterol 3 ML NEB ONE (09:34)
[2023-07-30 09:35] LABS: Troponin I Less than 0.010 ng/mL (< 0.028)
[2023-07-30] MEDS ORDERED: Albuterol 2.5 MG (0.5 mL) NEB ONE (09:35)
[2023-07-30] MEDS ORDERED: Dexamethasone 10 MG/ML VIAL ONE (10:06)
[2023-07-30] MEDS ORDERED: Furosemide 40 MG (4 mL) VIAL ONE (10:06)
[2023-07-30] MEDS ORDERED: Iopamidol 370 76% 100 ML VIAL ONE (11:52)
[2023-07-30 12:13] LABS: Bacteria/HPF None Seen HPF (None Seen); Bilirubin Negative (Negative); Blood, Urine Negative (Negative); CAUTI Indications for Culture Alt mental st,lethar; Clarity Clear (Clear); Glucose, Urine (Dipstick) Normal (Negative); Ketone, Urine Negative (Negative); Leukocyte Negative Leu/uL (Negative); Nitrite Negative (Negative); Protein, Urine (Dipstick) Negative (Neg-Trace); RBC/HPF None Seen HPF (0-3); Specific Gravity, Urine 1.014 (1.002-1.036); Squamous Epithelial 0-3 HPF (0-3); Urobilinogen Normal mg/dL (Less than 2); WBC/HPF 0-3 HPF (0-3)
[2023-07-30 12:15] LABS: Urine Culture Reflex No No
== END 2023-07-30 14:45 | disposition home or self-care (01) ==
LOC: ERS 08:33
DX: J44.9 Chronic obstructive pulmonary disease, unspecified (principal); M62.81 Muscle weakness (generalized); Z79.899 Other long term (current) drug therapy
CPT/HCPCS: 36415; 70450; 71045; 71275; 80053; 81001; 82550; 82805; 83880; 84484; 85025; 93005; 93970; 94640; 96374; 96375; J1100; J1940; J7611; J7620